=== PATIENT | female | born 2000 | race Caucasian/White ===

== ENCOUNTER 2018-07-26 20:52 | Emergency (ER) | payer SELFPAY ==
[~2018-07-26] VITALS: Ht 165.1 cm; Wt 74.8 kg
[2018-07-26 21:00] VITALS: BP 125/78
--- NOTE | 2018-07-26 22:02 | NUR ---
JIM KEYES AT BEDSIDE FOR EVAL.
== END 2018-07-26 23:12 | disposition home or self-care (01) ==
LOC: ER 20:54
DX: S61.213A Laceration without foreign body of left middle finger without damage to nail, initial encounter (principal); W25.XXXA Contact with sharp glass, initial encounter; Y93.G1 Activity, food preparation and clean up; Y92.89 Other specified places as the place of occurrence of the external cause; Y99.8 Other external cause status
CPT/HCPCS: 73140; 99283; A4606; Z7610